=== PATIENT | male | born 2005 | race Caucasian/White ===

== ENCOUNTER 2025-01-11 02:27 | Emergency (ER) | payer SELFPAY ==
[~2025-01-11] VITALS: Ht 170.2 cm; Wt 65.9 kg
[2025-01-11 03:01] VITALS: BP 97/79; PULSE 67; RESP 14; TEMP 98.5; O2SAT 97
[2025-01-11] MEDS: BACITRACIN 0.9 GM PACKET OINTMENT TP ONE (03:46)
== END 2025-01-11 04:05 ==
LOC: EMS 02:29
DX: S00.81XA Abrasion of other part of head, initial encounter (principal); V49.9XXA Car occupant (driver) (passenger) injured in unspecified traffic accident, initial encounter; Y93.89 Activity, other specified; Y92.410 Unspecified street and highway as the place of occurrence of the external cause; Y99.8 Other external cause status
CPT/HCPCS: 72040; 99283